=== PATIENT | male | born 1980 | race Hispanic/Latino ===

== ENCOUNTER → 2018-09-23 | Outpatient (CLI) | payer OTHER ==
--- NOTE | 2018-09-23 10:57 | Diagnostic Imaging Report ---
PROCEDURE:ABDOMINAL ULTRASOUND COMPARISON:None. INDICATIONS:epigastric pain FINDINGS: Liver: 13.5 cm in length in the right midclavicular line. Normal hepatic parenchymal echogenicity. No focal mass. Main portal vein: 0.8 cm in caliber. Hepatopedal flow. Gallbladder: No shadowing calculus, wall thickening, or pericholecystic fluid. 0.2 cm echogenic polyp protrudes into the bladder lumen at the neck. Common Bile Duct: 0.2 cm in caliber. No echogenic filling defect. Sonographic Mandujano's sign: Reported as negative. Right kidney: 10.6 cm in length. No solid or cystic mass, echogenic calculi, or hydronephrosis. Normal parenchymal echogenicity. Left kidney: 11.4 cm in length. No solid or cystic mass, echogenic calculi, or hydronephrosis. Normal parenchymal echogenicity. Spleen: 9.4 cm in length. Uniform parenchymal echotexture. Pancreas: The visualized portions of the pancreas are normal. Inferior vena cava: Patent Aorta: Non-aneurysmal Ascites: None. CONCLUSION: 2 mm gallbladder polyp may be assessed for stability by followup right upper quadrant ultrasound in one year. Otherwise unremarkable abdominal ultrasound. Dictated by: Mauro Torres M.D. on 09/23/2018 at 11:01 Electronically approved by: Mauro Torres M.D. on 09/23/2018 at 11:01
== END ==
LOC: US 09:34
PROVIDERS: ATTEND Internal Medicine Gastroenterology
DX: R10.13 Epigastric pain (principal)
CPT/HCPCS: 76700